=== PATIENT | female | born 1950 | race Caucasian/White ===

== ENCOUNTER 2024-03-12 12:27 | Emergency (ER) | payer MEDICARE, BC ==
[~2024-03-12] VITALS: Ht 162.6 cm; Wt 63.0 kg
[2024-03-12 12:46] VITALS: BP 154/79
[2024-03-12 12:49] VITALS: BP 154/79
== END 2024-03-12 13:41 | disposition home or self-care (01) ==
LOC: ED 12:27
PROC: 2W3KX1Z Immobilization of Left Finger using Splint (ICD-10-PCS; principal; 2024-03-12)
DX: S62.617A Displaced fracture of proximal phalanx of left little finger, initial encounter for closed fracture (principal); W22.09XA Striking against other stationary object, initial encounter

== ENCOUNTER 2024-04-03 12:15 | Emergency (ER) | payer MEDICARE ==
[~2024-04-03] VITALS: Ht 162.6 cm; Wt 61.2 kg
[2024-04-03 12:30] VITALS: BP 194/98
[2024-04-03 12:52] LABS: BASO% 1.3 % (0-3); EOS% 3.7 % (0-8); HEMOGLOBIN 15.3 g/dl (12.0-16.0); LYMPH% 41.3 % (15-41); MEAN CELL VOLUME 95.4 fL CALC (80.0-100.0); MEAN CORPUSCULAR HGB 31.7 pG CALC (26.0-32.0); MEAN CORPUSCULAR HGB CONC 33.3 g/dL CAL (32.0-36.0); MONO% 8.6 % (2-13); NEUT# 2.85 thou/uL (2.00-7.15); NEUT% 45.1 % (42-76); RED BLOOD COUNT 4.82 mill/uL (4.20-5.60); RED CELL DISTRI WIDTH 12.1 % (11.5-15.5)
[2024-04-03 12:53] VITALS: BP 201/89
[2024-04-03 13:00] VITALS: BP 211/102
[2024-04-03 13:00] LABS: ALBUMIN 4.5 g/dL (3.2-5.0); BILIRUBIN, TOTAL 1.4 mg/dL (0.02-1.3); CHOLESTEROL HDL RATIO 3.8 (<4.4 (CALC)); CREATININE 0.6 mg/dL (0.5-1.0); POTASSIUM 4.5 mmol/l (3.5-5.1); TOTAL PROTEIN 7.4 g/dL (6.3-8.2)
[2024-04-03 13:08] LABS: PROTHROMBIN TIME 10.5 SECONDS (9.0-12.5)
[2024-04-03 13:47] VITALS: BP 211/102
== END 2024-04-03 13:48 ==
LOC: ED 12:15
PROVIDERS: Nurse Practitioner
DX: I63.9 Cerebral infarction, unspecified (principal); R42 Dizziness and giddiness; G81.91 Hemiplegia, unspecified affecting right dominant side; R29.704 NIHSS score 4